=== PATIENT | male | born 2000 | race Caucasian/White ===

== ENCOUNTER → 2023-08-21 13:48 | Outpatient (REF) | payer BC, SELFPAY | LOC: RAD 13:48 | PROVIDERS: ATTENDING PHYSICIAN Family Medicine | DX: S39.011A Strain of muscle, fascia and tendon of abdomen, initial encounter (principal) | CPT/HCPCS: 76882 ==

== ENCOUNTER → 2023-12-02 11:25 | Outpatient (REF) | payer OTHER, SELFPAY ==
[2023-12-02 12:23] LABS: % Basophils 0.6 % (0-2); % Immature Granulocytes 0.2 % (0-0.5); % Lymphocytes 26.1 % (20.5-51.1); % Monocytes 10.5 % (1.7-9.3); % Neutrophils 60.6 % (42.2-75.2); Absolute Eosinophils 0.1 10^3/uL (0-0.7); Absolute Lymphocytes 1.7 10^3/uL (1.2-3.4); Absolute Monocytes 0.7 10^3/uL (0.1-0.6); Absolute Neutrophils 3.9 10^3/uL (1.4-6.5); Hematocrit 42.1 % (39.0-52.0); Hemoglobin 15.3 g/dL (13.0-18.0); Mean Corp Hgb Conc. 36.3 g/dL (33.0-37.0); Mean Corpuscular Hgb 30.2 pg (27.0-31.0); Mean Corpuscular Volume 83.2 fL (80.0-94.0); Mean Platelet Volume 9.6 fL (7.4-10.4); Nucleated Red Blood Cells % 0 % (-); Platelet Count 285 10^3/uL (130-400); Red Blood Cell Count 5.06 10^6/uL (4.70-6.10); Red Cell Dist. Width 11.6 % (11.5-14.5); White Blood Cell Count 6.4 10^3/uL (4.8-10.8)
[2023-12-02 12:29] LABS: ALT (SGPT) 22 U/L (0-50); AST (SGOT) 32 U/L (17-59); Albumin 4.7 g/dl (3.5-5.0); Alkaline Phosphatase 63 U/L (38-126); Blood Urea Nitrogen 14 mg/dl (9-20); Calcium 10.2 mg/dl (8.4-10.2); Carbon Dioxide 25 mmol/L (22-30); Chloride 103 mmol/L (98-107); Glucose 72 mg/dl (70-99); HDL Cholesterol 50 mg/dl; LDL Cholesterol, Calculated 100 mg/dl; Potassium 4.3 mmol/L (3.5-5.1); Sodium 138 mmol/L (135-145); Total Bilirubin 0.7 mg/dl (0.2-1.3); Total Cholesterol 176 mg/dl (50-199); Total Protein 7.3 g/dl (6.3-8.2); Triglyceride 133 mg/dl (10-149); Very Low Density Lipoprotein 26 mg/dl (0-30); eGFR > 60.00
[2023-12-02 12:58] LABS: TSH 0.44 uIU/ml (0.47-4.68)
== END ==
LOC: REG 11:25
PROVIDERS: ATTENDING PHYSICIAN Family Medicine
DX: Z00.00 Encounter for general adult medical examination without abnormal findings (principal)
CPT/HCPCS: 36415; 80053; 80061; 84443; 85025

== ENCOUNTER → 2024-03-02 11:07 | Outpatient (REF) | payer OTHER, SELFPAY ==
[2024-03-02 12:22] LABS: % Basophils 0.6 % (0-2); % Eosinophils 4.3 % (0-6); % Immature Granulocytes 0.3 % (0-0.5); % Lymphocytes 28.5 % (20.5-51.1); % Monocytes 9.7 % (1.7-9.3); % Neutrophils 56.6 % (42.2-75.2); Absolute Eosinophils 0.3 10^3/uL (0-0.7); Absolute Lymphocytes 1.9 10^3/uL (1.2-3.4); Absolute Monocytes 0.7 10^3/uL (0.1-0.6); Absolute Neutrophils 3.8 10^3/uL (1.4-6.5); Hematocrit 43.1 % (39.0-52.0); Hemoglobin 15.8 g/dL (13.0-18.0); Mean Corp Hgb Conc. 36.7 g/dL (33.0-37.0); Mean Corpuscular Hgb 30.9 pg (27.0-31.0); Mean Corpuscular Volume 84.3 fL (80.0-94.0); Mean Platelet Volume 9.6 fL (7.4-10.4); Nucleated Red Blood Cells % 0 % (-); Platelet Count 304 10^3/uL (130-400); Red Blood Cell Count 5.11 10^6/uL (4.70-6.10); Red Cell Dist. Width 11.9 % (11.5-14.5); White Blood Cell Count 6.7 10^3/uL (4.8-10.8)
[2024-03-02 12:38] LABS: ALT (SGPT) 17 U/L (0-50); AST (SGOT) 24 U/L (17-59); Albumin 5.3 g/dl (3.5-5.0); Alkaline Phosphatase 65 U/L (38-126); Blood Urea Nitrogen 12 mg/dl (9-20); Calcium 10.5 mg/dl (8.4-10.2); Carbon Dioxide 28 mmol/L (22-30); Chloride 100 mmol/L (98-107); Glucose 88 mg/dl (70-99); Sodium 141 mmol/L (135-145); Total Bilirubin 0.8 mg/dl (0.2-1.3); eGFR > 60.00
[2024-03-02 12:54] LABS: Free T4 1.04 ng/dl (0.78-2.19)
== END ==
LOC: REG 11:07
PROVIDERS: ATTENDING PHYSICIAN Family Medicine
DX: R79.89 Other specified abnormal findings of blood chemistry (principal); Z79.899 Other long term (current) drug therapy
CPT/HCPCS: 36415; 80053; 84439; 84443; 84480; 85025; 86376; 86800

== ENCOUNTER 2024-03-08 22:46 | Emergency (ER) | payer OTHER, SELFPAY ==
[2024-03-08 22:52] VITALS: BP 126/86
--- NOTE | 2024-03-08 23:28 | ED.GENMED ---
History of Present Illness
General
Chief Complaint: Abdominal Symptoms
Source: patient
Time Seen by Provider: 03/08/24 23:06
History of Present Illness
History of Present Illness:
23-year-old male presents emergency complaining of nausea, abdominal cramping. Symptoms been present for the past couple days. Sister is sick as well as mom. No known fever.
Past History
Past History
ED Past Medical History: Asthma
ED Past Surgical History: None
Social History
Tobacco: Non-smoker
Phy Exam
Physical Exam
Physical Exam:
General: Awake, Alert, Oriented X3. No acute distress.
Vitals: unremarkable
Head: Atraumatic
Eyes: Pupils equal, EOMI
Throat: Airway intact, no exudates
Neck: Trachea midline
Lungs: Clear and equal b/l
Heart: Regular rate, no murmurs
Abd: Soft, Nontender, No pulsatile mass
Neuro: Nonfocal
Skin: Warm, dry, no rash
Extremities: pulses equal b/l, no edema
Course
Orders/Labs/Results
Orders:
Orders
03/08/24 23:27
0.9% Sodium Chloride 1000 ml [Nss] 1,000 ml IV BOLUS
Ondansetron Injectable [Zofran] 4 mg IV NOW STA
03/08/24 23:41
Complete Blood Count/With Diff Urgent
Comprehensive Metabolic Panel Urgent
Lipase Urgent
03/08/24 23:44
Urinalysis Reflex To Culture Urgent
Date Specimen was Collected: 03/08/24
Time Specimen was Collected: 23:42
03/09/24 00:32
Ondansetron Injectable [Zofran] 4 mg IV NOW STA
Abnormal Lab Results
03/08/24
23:41
MCHC 37.1 H g/dL
(33.0-37.0)
Absolute Monos (auto) 0.9 H 10^3/uL
(0.1-0.6)
Monocytes % 11.2 H %
(1.7-9.3)
Calcium 10.6 H mg/dl
(8.4-10.2)
Albumin 5.4 H g/dl
(3.5-5.0)
03/08/24 23:41
03/08/24 23:41
Vital Signs
Initial and Last Documented VS:
Initial Vital Signs
Temp Pulse Resp BP Pulse Ox
99.2 F 98 16 126/86 100
03/08/24 22:52 03/08/24 22:52 03/08/24 22:52 03/08/24 22:52 03/08/24 22:52
Last Documented Vital Signs
Temp Pulse Resp BP Pulse Ox
99.2 F 98 16 126/86 100
03/08/24 22:52 03/08/24 22:52 03/08/24 22:52 03/08/24 22:52 03/08/24 22:52
MDM/Problems Addressed
Differential Diagnosis Includes:
gastroenteritis, viral syndrome
MDM/Problems Addressed:
Patient presents with nausea. He felt he might have diarrhea but did not. His exam is benign. He has not vomited here. Patient hydrated with a liter of normal saline and given IV evidence of trauma. Stable for discharge home. No evidence of an
unstable process.
*Pulse Oximetry
Patient hypoxic: no
*Critical Care Note
Total Time (30-74mins, 75-104mins- exclusive of procedures): Not Applicable
ED Attending Note
-
Portions of this chart may have been created with voice recognition software.� Occasional wrong word or��sound alike� substitutions may have occurred due to the inherent limitations of voice recognition software.
Discharge Plan
Departure
Patient Disposition: Home (Routine Discharge)
Date of Disposition: 03/09/24
Time of Disposition: 00:33
Patient with high blood pressure during this ER visit?: No
Condition: Good
Discharge Problem:
Nausea & vomiting
Instructions: Nausea and Vomiting, Adult (DC)
Prescriptions:
New
ondansetron 4 mg tablet,disintegrating
4 mg feeding tube TID PRN (Reason: nausea and vomiting) Qty: 10 0RF
No Action
ketotifen fumarate [Zaditor] 5 ML drops
1 drp OP DAILY
desloratadine [Clarinex] 5 MG tablet
5 mg PO DAILY
montelukast 10 MG tablet
10 mg PO QPM
azelastine-fluticasone [Dymista] 23 GM spray,non-aerosol
23 gm NS DAILY
levalbuterol HCl [Xopenex] 1.25 MG/3 ML solution for nebulization
1.25 mg IH PRN PRN (Reason: wheezing)
fluticasone propionate 1 SPRAY spray,suspension
1 spray intranasal BID Qty: 1 0RF
guaifenesin [Mucus Relief ER] 600 MG tablet extended release 12hr
600 mg PO Q12H Qty: 20 0RF
Paxlovid 300 mg (150 mg x 2)-100 mg tablets,dose pack
See Rx Instructions .ROUTE .COMPLEX Qty: 30 0RF
Rx Instructions:
take TWO 150 mg tablets of nirmatrelvir with ONE 100 mg tablet of ritonavir twice daily for 5 days
Robitussin Cough-Sore Throat 325-10 mg/10 mL liquid
20 ml PO Q4H PRN (Reason: cold symptoms) Qty: 237 0RF
sucralfate [Carafate] 100 mg/mL suspension
10 ml PO QID Qty: 200 0RF
ondansetron HCl 4 mg tablet
4 mg PO Q8H PRN (Reason: nausea and vomiting) Qty: 14 0RF
Referrals:
Tj Jacques DO [Family Provider] -
Stand Alone Forms: Return to Work
Interventions
Interventions:
*Risk Screen - Suicide Last Done: 03/09/24 00:55
*General Assessment Last Done: 03/08/24 22:52
*Neglect/Abuse Screening Last Done: 03/08/24 22:52
*Nursing Disposition Last Done: 03/09/24 00:56
VD-Cohsfv-Wdwqzthdjd Assessment Last Done: 03/08/24 23:00
Discharge Date and Time
Discharge Date/Time: 03/09/24 00:56
Print Language: CHADIAN
[2024-03-08] MEDS: ZOFRAN 4 MG IV (23:43)
[2024-03-08] MEDS: NSS 1000 IV (23:43)
[2024-03-08 23:56] LABS: Urine Albumin Negative (Neg - Trace); Urine Bilirubin Negative (Negative); Urine Character Clear (Clear); Urine Color Yellow; Urine Glucose Negative (Negative); Urine Ketone Negative (Negative); Urine Leukocyte Negative (Negative); Urine Nitrite Negative (Negative); Urine Occult Blood Negative (Negative); Urine Specific Gravity 1.005 (<1.030); Urine Urobilinogen Negative (Neg - 1+)
[2024-03-08 23:57] LABS: % Basophils 0.5 % (0-2); % Eosinophils 1.5 % (0-6); % Immature Granulocytes 0.2 % (0-0.5); % Lymphocytes 27.3 % (20.5-51.1); % Monocytes 11.2 % (1.7-9.3); % Neutrophils 59.3 % (42.2-75.2); Absolute Eosinophils 0.1 10^3/uL (0-0.7); Absolute Lymphocytes 2.2 10^3/uL (1.2-3.4); Absolute Monocytes 0.9 10^3/uL (0.1-0.6); Absolute Neutrophils 4.8 10^3/uL (1.4-6.5); Hematocrit 43.4 % (39.0-52.0); Hemoglobin 16.1 g/dL (13.0-18.0); Mean Corp Hgb Conc. 37.1 g/dL (33.0-37.0); Mean Corpuscular Hgb 30.4 pg (27.0-31.0); Mean Platelet Volume 9.5 fL (7.4-10.4); Nucleated Red Blood Cells % 0 % (-); Platelet Count 320 10^3/uL (130-400); Red Blood Cell Count 5.29 10^6/uL (4.70-6.10); Red Cell Dist. Width 11.7 % (11.5-14.5); White Blood Cell Count 8.1 10^3/uL (4.8-10.8)
[2024-03-09 00:12] LABS: ALT (SGPT) 16 U/L (0-50); AST (SGOT) 24 U/L (17-59); Albumin 5.4 g/dl (3.5-5.0); Alkaline Phosphatase 73 U/L (38-126); Blood Urea Nitrogen 16 mg/dl (9-20); Calcium 10.6 mg/dl (8.4-10.2); Carbon Dioxide 24 mmol/L (22-30); Chloride 101 mmol/L (98-107); Glucose 78 mg/dl (70-99); Lipase 135 U/L (23-300); Potassium 3.8 mmol/L (3.5-5.1); Sodium 143 mmol/L (135-145); Total Bilirubin 0.6 mg/dl (0.2-1.3); Total Protein 8.1 g/dl (6.3-8.2); eGFR > 60.00
[2024-03-09] MEDS: ZOFRAN 4 MG IV (00:35)
== END 2024-03-09 00:56 | disposition home or self-care (01) ==
LOC: EMR 22:46
PROVIDERS: EMERGENCY PHYSICIAN Emergency Medicine; FAMILY PHYSICIAN Family Medicine
DX: R11.2 Nausea with vomiting, unspecified (principal); J45.909 Unspecified asthma, uncomplicated
CPT/HCPCS: 99283; 96374; 96376; 80053; 81003; 83690; 85025

== ENCOUNTER → 2024-03-30 11:08 | Outpatient (REF) | payer OTHER, SELFPAY ==
[2024-03-30 12:49] LABS: Calcium 10.5 mg/dl (8.4-10.2)
[2024-03-30 14:28] LABS: Intact PTH 27.2 pg/ml (13.6-85.8)
== END ==
LOC: REG 11:08
PROVIDERS: ATTENDING PHYSICIAN Family Medicine
DX: E88.09 Other disorders of plasma-protein metabolism, not elsewhere classified (principal); E83.52 Hypercalcemia
CPT/HCPCS: 36415; 83970; 84155; 84165

== ENCOUNTER 2024-06-28 11:41 | Emergency (ER) | payer OTHER, SELFPAY ==
[2024-06-28 11:45] VITALS: BP 124/67
[2024-06-28] MEDS: TYLENOL 1000 MG PO (11:52)
--- NOTE | 2024-06-28 13:28 | ED.GENMED ---
History of Present Illness
General
Chief Complaint: Cold/Flu/URI Symptoms
Source: patient
Exam Limitations: none
Time Seen by Provider: 06/28/24 13:05
Nursing documentation reviewed up to this point in time: agreed with
History of Present Illness
History of Present Illness:
23-year-old male presenting to the emergency department after testing positive for COVID today. Yesterday started having bodyaches fever sore throat nasal congestion cough chills. Denies any shortness of breath or chest pain.
Past History
Past History
ED Past Medical History: Asthma
ED Past Surgical History: None
Social History
Tobacco: Non-smoker
Review of Systems
Review of Systems
Allergies reviewed?: Yes
All Other Systems: ROS reviewed and negative except as documented in HPI and ROS
Phy Exam
Physical Exam
Physical Exam:
GENERAL: Alert , in no apparent distress
EYE: pupils equal and reactive
NECK: Supple, no significant adenopathy.
ENT: Swollen boggy nasal turbinates, redness to the posterior pharynx without significant swelling. o/p clr, mmm.
CARDIAC: Regular rate and rhythm .
LUNGS: Clear breath sounds bilaterally, no acute respiratory distress, no wheezes/rales/rhonchi
ABDOMEN: Soft, without focal tenderness, no r/g, no cvat
NEUROLOGICAL: Alert and oriented, no focal neuro deficits
SKIN: Warm and dry, skin intact.
MUSCULOSKELETAL: No edema, well perfused.
PSYCH: Normal and appropriate interaction.
Course
Orders/Labs/Results
Orders:
Orders
06/28/24 11:49
Acetaminophen [Tylenol] 1,000 mg .ROUTE .STK-MED ONE
06/28/24 11:52
Acetaminophen [Tylenol] 1,000 mg PO NOW STA
06/28/24 13:27
Dexamethasone [Decadron] 10 mg PO NOW STA
Ibuprofen [Motrin] 600 mg PO NOW STA
Vital Signs
Initial and Last Documented VS:
Initial Vital Signs
Temp Pulse Resp BP Pulse Ox
101.4 F H 105 18 124/67 98
06/28/24 11:45 06/28/24 11:45 06/28/24 11:45 06/28/24 11:45 06/28/24 11:45
Last Documented Vital Signs
Temp Pulse Resp BP Pulse Ox
101.4 F H 105 18 124/67 98
06/28/24 11:45 06/28/24 11:45 06/28/24 11:45 06/28/24 11:45 06/28/24 11:45
MDM/Problems Addressed
MDM/Problems Addressed:
23-year-old male presenting to the emergency department today with concerns of COVID. Symptoms started yesterday. No chest pain shortness of breath temperature of 101.4 mildly tachycardic upon arrival but improved during my reassessment. Patient
without any signs of complication. Plan for outpatient management return precautions given.
*Critical Care Note
Total Time (30-74mins, 75-104mins- exclusive of procedures): Not Applicable
ED Attending Note
-
Portions of this chart may have been created with voice recognition software.� Occasional wrong word or��sound alike� substitutions may have occurred due to the inherent limitations of voice recognition software.
Discharge Plan
Departure
Patient Disposition: Home (Routine Discharge)
Date of Disposition: 06/28/24
Time of Disposition: 13:29
Patient with high blood pressure during this ER visit?: No
Condition: Good
Covid-19: Not Applicable
Discharge Problem:
COVID-19
Instructions: Viral Syndrome (DC)
Prescriptions:
New
fluticasone propionate [Flonase Allergy Relief] 50 mcg/actuation spray,suspension
1 spray intranasal BID Qty: 16 0RF
ibuprofen 600 mg tablet
600 mg PO Q8H PRN (Reason: Pain) Qty: 10 0RF
No Action
ketotifen fumarate [Zaditor] 5 ML drops
1 drp OP DAILY
desloratadine [Clarinex] 5 MG tablet
5 mg PO DAILY
montelukast 10 MG tablet
10 mg PO QPM
azelastine-fluticasone [Dymista] 23 GM spray,non-aerosol
23 gm NS DAILY
levalbuterol HCl [Xopenex] 1.25 MG/3 ML solution for nebulization
1.25 mg IH PRN PRN (Reason: wheezing)
fluticasone propionate 1 SPRAY spray,suspension
1 spray intranasal BID Qty: 1 0RF
guaifenesin [Mucus Relief ER] 600 MG tablet extended release 12hr
600 mg PO Q12H Qty: 20 0RF
Paxlovid 300 mg (150 mg x 2)-100 mg tablets,dose pack
See Rx Instructions .ROUTE .COMPLEX Qty: 30 0RF
Rx Instructions:
take TWO 150 mg tablets of nirmatrelvir with ONE 100 mg tablet of ritonavir twice daily for 5 days
Robitussin Cough-Sore Throat 325-10 mg/10 mL liquid
20 ml PO Q4H PRN (Reason: cold symptoms) Qty: 237 0RF
sucralfate [Carafate] 100 mg/mL suspension
10 ml PO QID Qty: 200 0RF
ondansetron HCl 4 mg tablet
4 mg PO Q8H PRN (Reason: nausea and vomiting) Qty: 14 0RF
ondansetron 4 mg tablet,disintegrating
4 mg feeding tube TID PRN (Reason: nausea and vomiting) Qty: 10 0RF
Activity Restrictions/Additional Instructions:
You came to the emergency department today with concerns of COVID. No signs of secondary complications to this. It is important stay home and rest over the next few days as symptoms will improve. Return to the emergency department for any
worsening, new or concerning symptoms.
Discharge Date and Time
Print Language: CAMEROONIAN
[2024-06-28] MEDS: DECADRON 10 MG PO (14:06)
[2024-06-28] MEDS: MOTRIN 600 MG PO (14:07)
== END 2024-06-28 14:24 | disposition home or self-care (01) ==
LOC: EMR 11:41
PROVIDERS: EMERGENCY PHYSICIAN Emergency Medicine; FAMILY PHYSICIAN Family Medicine
DX: U07.1 COVID-19 (principal)
CPT/HCPCS: 99283

== ENCOUNTER 2024-06-29 18:13 | Emergency (ER) | payer OTHER, SELFPAY ==
[2024-06-29 18:19] VITALS: BP 118/82
--- NOTE | 2024-06-29 18:24 | EDRN ---
pt took frantz @ 1400.
[2024-06-29 18:38] LABS: % Basophils 0.1 % (0-2); % Immature Granulocytes 0.4 % (0-0.5); % Monocytes 8.9 % (1.7-9.3); % Neutrophils 83.6 % (42.2-75.2); Absolute Immature Granulocytes 0.1 10^3/uL (0-0.05); Absolute Lymphocytes 1.1 10^3/uL (1.2-3.4); Absolute Monocytes 1.4 10^3/uL (0.1-0.6); Absolute Neutrophils 13.2 10^3/uL (1.4-6.5); Hematocrit 40.3 % (39.0-52.0); Hemoglobin 14.7 g/dL (13.0-18.0); Mean Corp Hgb Conc. 36.5 g/dL (33.0-37.0); Mean Corpuscular Hgb 30.9 pg (27.0-31.0); Mean Corpuscular Volume 84.7 fL (80.0-94.0); Mean Platelet Volume 9.4 fL (7.4-10.4); Nucleated Red Blood Cells % 0 % (-); Platelet Count 286 10^3/uL (130-400); Red Blood Cell Count 4.76 10^6/uL (4.70-6.10); Red Cell Dist. Width 11.4 % (11.5-14.5); White Blood Cell Count 15.8 10^3/uL (4.8-10.8)
[2024-06-29 18:55] LABS: ALT (SGPT) 29 U/L (0-50); AST (SGOT) 29 U/L (17-59); Albumin 4.9 g/dl (3.5-5.0); Alkaline Phosphatase 69 U/L (38-126); Blood Urea Nitrogen 13 mg/dl (9-20); Carbon Dioxide 18 mmol/L (22-30); Chloride 104 mmol/L (98-107); Glucose 135 mg/dl (70-99); Potassium 3.5 mmol/L (3.5-5.1); Sodium 139 mmol/L (135-145); Total Bilirubin 0.5 mg/dl (0.2-1.3); Total Protein 7.7 g/dl (6.3-8.2); eGFR > 60.00
[2024-06-29 21:31] VITALS: BP 128/68
[2024-06-29 21:39] LABS: Urine Albumin Negative (Neg - Trace); Urine Bilirubin Negative (Negative); Urine Character Clear (Clear); Urine Color Straw; Urine Glucose Negative (Negative); Urine Ketone Negative (Negative); Urine Leukocyte Negative (Negative); Urine Nitrite Negative (Negative); Urine Occult Blood Negative (Negative); Urine Urobilinogen Negative (Neg - 1+)
--- NOTE | 2024-06-29 21:56 | ED.GENMED ---
History of Present Illness
General
Chief Complaint: Abdominal Symptoms
Source: patient
Exam Limitations: none
Time Seen by Provider: 06/29/24 21:08
History of Present Illness
History of Present Illness:
This is a 23 year old male that comes in with c/o hiccups. States that he was here in the ER yesterday and diagnosed with COVID. Patient was given Dexamethasone and discharge home. Today patient got up at 11am and he started with hiccups. State
that he had been hiccuping for hours. States that he called the Pharmacist and was told that this could be a reaction to the steroids. States that around 5:30pm he stopped. States that he did vomit once when he was home. States that he feels
slightly SOB. Denies any fever, chills, chest pain, abd pain, diarrhea, headache, dizziness, urinary burning.
Past History
Past History
ED Past Medical History: Asthma and Other (Orthostatcic hypotension)
ED Past Surgical History: Tonsilectomy (and adenoids) and Other (Myringtomy tubes)
Social History
Tobacco: Non-smoker
Alcohol: None
Personal: Single
Living: with family
Review of Systems
Review of Systems
All Other Systems: ROS reviewed and negative except as documented in HPI and ROS
Constitutional: Reports no symptoms; Denies fever or chills
EENT: Reports no symptoms
Respiratory: Reports trouble breathing; Denies cough
Cardiac: Reports no symptoms; Denies chest pain
ABD/GI: Reports nausea and vomiting (Once); Denies abdominal pain or diarrhea
: Reports no symptoms; Denies dysuria, frequency or urgency
Musculoskeletal: Reports no symptoms
Skin: Reports no symptoms
Neurological: Reports no symptoms; Denies dizzy or headache
Psychiatric: Reports no symptoms
Phy Exam
General Physical Exam
General Presentation: well appearing and no apparent distress
General age: appears stated age
General Skin: warm and dry
General Habitus: normal
General Mental: alert
General Hydration: appears well hydrated
ENT Exam
ENT Exam: TM's normal, pharynx normal and neck supple
Eye Exam
Eye Exam: EOMI
Cardiovascular Exam
Cardiovascular Exam: regular rate/rhythm, no edema, no murmur and normal peripheral pulses
Pulmonary Exam
Pulmonary Exam: lungs clear, no respiratory distress, no rales, chest non tender, no crackles, no rhonchi, no wheezing and no cough
Gastrointestinal Exam
Gastrointestinal Exam: normal bowel sounds, soft, no organomegaly, no pulsatile mass, non distended and tender (Soreness upper abd with palpation of muscles due to hiccups)
Musculoskeletal Exam
Musculoskeletal Exam: full ROM and no edema
Skin Exam
Skin Exam: normal color, warm/dry, no rash and no petechia
Psychiatric Exam
Psychiatric Exam: normal mood/affect
Course
Orders/Labs/Results
Orders:
Orders
06/29/24 18:31
Complete Blood Count/With Diff Urgent
Comprehensive Metabolic Panel Urgent
06/29/24 21:21
Urinalysis Reflex To Culture Urgent
Date Specimen was Collected: 06/29/24
Time Specimen was Collected: 18:24
Abnormal Lab Results
06/29/24
18:31
WBC 15.8 H 10^3/uL
(4.8-10.8)
RDW 11.4 L %
(11.5-14.5)
Abs Immat Gran (auto) 0.1 H 10^3/uL
(0-0.05)
Absolute Neuts (auto) 13.2 H 10^3/uL
(1.4-6.5)
Absolute Lymphs (auto) 1.1 L 10^3/uL
(1.2-3.4)
Absolute Monos (auto) 1.4 H 10^3/uL
(0.1-0.6)
Neutrophils % 83.6 H %
(42.2-75.2)
Lymphocytes % 7.0 L %
(20.5-51.1)
Carbon Dioxide 18 L mmol/L
(22-30)
Glucose 135 H mg/dl
(70-99)
06/29/24 18:31
06/29/24 18:31
Leukocytosis, (patient had steroids), carbon dioxide slightly low. Hyperglycemia.
Vital Signs
Initial and Last Documented VS:
Initial Vital Signs
Temp Pulse Resp BP Pulse Ox
98.4 F 91 16 118/82 99
06/29/24 18:19 06/29/24 18:19 06/29/24 18:19 06/29/24 18:19 06/29/24 18:19
Last Documented Vital Signs
Temp Pulse Resp BP Pulse Ox
98 F 70 18 128/68 98
06/29/24 21:31 06/29/24 21:31 06/29/24 21:31 06/29/24 21:31 06/29/24 21:31
MDM/Problems Addressed
Differential Diagnosis Includes:
Hiccups, COVID, Reaction to dexamethasone.
MDM/Problems Addressed:
This is a 23 year old male that comes in with c/ol hiccups. State that he was here yesterday and diagnosed with COVID. States that he was given Dexamethasone and today at 11am he started with hiccups. States that he was hiccuping all day. States
that at 5:30pm it stopped. Patient did vomit once.
Explained to patient that this could have been due to COVID or the steroid. Patient is eating and drinking in the room at this time. Will give patient a prescription for Zofran and discharge patient home. Patient to return with any concerns.
Chronic conditions affecting care:
NA
Acute Exacerbation and/or Progression of Chronic Illness:
NA
*Pulse Oximetry
Patient hypoxic: no
*EKG
Interpreted by ED Provider?: NA
Rate: EKG- N/A
*Mammographer Interpretation
Rate: Mammographer- N/A
*Critical Care Note
Total Time (30-74mins, 75-104mins- exclusive of procedures): Not Applicable
ED Attending Note
-
Portions of this chart may have been created with voice recognition software.� Occasional wrong word or��sound alike� substitutions may have occurred due to the inherent limitations of voice recognition software.
Discharge Plan
Departure
Patient Disposition: Home (Routine Discharge)
Date of Disposition: 06/29/24
Time of Disposition: 22:03
Patient with high blood pressure during this ER visit?: No
Condition: Good
Covid-19: Not Applicable
Discharge Problem:
Intractable hiccups
Instructions: Hiccups
Prescriptions:
New
ondansetron 4 mg tablet,disintegrating
4 mg PO Q8H PRN (Reason: nausea and vomiting) Qty: 7 0RF
No Action
ketotifen fumarate [Zaditor] 5 ML drops
1 drp OP DAILY
desloratadine [Clarinex] 5 MG tablet
5 mg PO DAILY
montelukast 10 MG tablet
10 mg PO QPM
azelastine-fluticasone [Dymista] 23 GM spray,non-aerosol
23 gm NS DAILY
levalbuterol HCl [Xopenex] 1.25 MG/3 ML solution for nebulization
1.25 mg IH PRN PRN (Reason: wheezing)
fluticasone propionate 1 SPRAY spray,suspension
1 spray intranasal BID Qty: 1 0RF
guaifenesin [Mucus Relief ER] 600 MG tablet extended release 12hr
600 mg PO Q12H Qty: 20 0RF
Paxlovid 300 mg (150 mg x 2)-100 mg tablets,dose pack
See Rx Instructions .ROUTE .COMPLEX Qty: 30 0RF
Rx Instructions:
take TWO 150 mg tablets of nirmatrelvir with ONE 100 mg tablet of ritonavir twice daily for 5 days
Robitussin Cough-Sore Throat 325-10 mg/10 mL liquid
20 ml PO Q4H PRN (Reason: cold symptoms) Qty: 237 0RF
sucralfate [Carafate] 100 mg/mL suspension
10 ml PO QID Qty: 200 0RF
ondansetron HCl 4 mg tablet
4 mg PO Q8H PRN (Reason: nausea and vomiting) Qty: 14 0RF
ondansetron 4 mg tablet,disintegrating
4 mg feeding tube TID PRN (Reason: nausea and vomiting) Qty: 10 0RF
fluticasone propionate [Flonase Allergy Relief] 50 mcg/actuation spray,suspension
1 spray intranasal BID Qty: 16 0RF
ibuprofen 600 mg tablet
600 mg PO Q8H PRN (Reason: Pain) Qty: 10 0RF
Referrals:
Tj Jacques DO [Family Provider] - Call in 1-3 days for appt
Activity Restrictions/Additional Instructions:
As discussed, it is hard to say if this was from medication or due to COVID. Please increase your water intake to 8-8oz glasses daily. You have had a prescription for Zofran sent to your pharmacy if needed for any nausea/vomiting. Follow up with the
family doctor as needed. IF YOU HAVE ANY OTHER CONCERNS PLEASE RETURN TO THE EMEGENCY ROOM.
Interventions
Interventions:
*Risk Screen - Suicide Last Done: 06/29/24 18:19
*Neglect/Abuse Screening Last Done: 06/29/24 18:19
IX-Nbhzev-Rgjmpsuwyt Assessment Last Done: 06/29/24 21:29
Discharge Date and Time
Print Language: UPPER SORBIAN
== END 2024-06-29 22:20 | disposition home or self-care (01) ==
LOC: EMR 18:13
PROVIDERS: Emergency Medicine; EMERGENCY PHYSICIAN Emergency Medicine; FAMILY PHYSICIAN Family Medicine
DX: R06.6 Hiccough (principal); U07.1 COVID-19; J45.909 Unspecified asthma, uncomplicated
CPT/HCPCS: 99283; 80053; 81003; 85025